=== PATIENT | female | born 1930 | race Caucasian/White ===

== ENCOUNTER 2017-03-06 05:50 | Observation (INO) | payer MEDICARE ==
[2017-03-05 12:09] LABS: BASOPHILS 0.2 %; BASOPHILS ABSOLUTE 0.02 10/3/uL (0.0-0.16); EOSINOPHILS 0.6 %; EOSINOPHILS ABSOLUTE 0.07 10/3/uL (0.0-0.53); IMMATURE GRANULOCYTES 0.3 %; IMMATURE GRANULOCYTES ABSOLUTE 0.04 10/3/uL (0.0-0.11); LYMPHOCYTES 6.8 %; LYMPHOCYTES ABSOLUTE 0.82 10/3/uL (0.67-4.30); MEAN CORPUS HGB CONC 31.7 g/dL (32.0-36.0); MEAN CORPUSCULAR HEMOGLOB 25.4 pg (26.0-34.0); MEAN PLATELET VOLUME 9.6 fL (9.2-13.0); MONOCYTES 7.9 %; MONOCYTES ABSOLUTE 0.95 10/3/uL (0.21-1.20); NEUTROPHILS 84.2 %; PLATELET COUNT 229 10/3/uL (150-400); RED CELL COUNT 3.93 10/6/uL (4.0-5.6)
[2017-03-05 12:11] LABS: HEMATOCRIT 31.5 % (36.0-48.0); MANUAL DIFF NO %; MEAN CORPUSCULAR VOLUME 80.2 fL (80-100); RBC DISTRIBUTION WIDTH 16.2 % (12.0-16.0); WHITE BLOOD CELLS 12.1 10/3/uL (4.5-10.5)
[2017-03-05 12:19] LABS: A/G RATIO 0.8 (0.7-1.9); ALBUMIN 3.2 G/DL (3.5-5.0); ALKALINE PHOSPHATASE 75 U/L (45-117); BUN (BLOOD UREA NITROGEN) 40 MG/DL (6-23); CHLORIDE, SERUM 101 MMOL/L (96-112); CO2 (CARBON DIOXIDE) 28 MMOL/L (24-34); CREATININE 2.15 MG/DL (0.55-1.02); GFR AFRICAN AMERICAN 24 ML/MIN (>=60); GFR NON AFRICAN AMERICAN 20 ML/MIN (>=60); GLUCOSE, SERUM 104 MG/DL (60-99); POTASSIUM, SERUM 4.2 MMOL/L (3.5-5.3); SGOT(AST) 14 U/L (5-40); SGPT(ALT) 19 U/L (5-65); SODIUM, SERUM 134 MMOL/L (135-148); TOTAL BILIRUBIN 0.4 MG/DL (0-1.2); TOTAL PROTEIN 7.2 G/DL (6.0-8.5)
[2017-03-05 12:36] LABS: ASCORBIC ACID (UR NOT ORDER) NEG (NEG); BILIRUBIN, URINE NEGATIVE (NEG); KETONE, URINE NEGATIVE (NEG); LEUKOCYTE ESTERASE(NOT OR LARGE (NEG); WBC (NOT ORDERED) (RFLEX) 75 (0-5)
[~2017-03-06] VITALS: Ht 162.6 cm; Wt 66.2 kg
--- NOTE | ~2017-03-06 | OP ---
Record Of Operation [facility] [address] [place]. 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 POSTOPERATIVE DIAGNOSIS: Left distal ureteral stricture (probably malignant) with left ureteral mass and proximal hydronephrosis. OPERATIVE PROCEDURES: 1. Left ureteroscopy with ureteral biopsy x3. 2. Left ureteral stent placement (6-Eritrean 26 cm Microvasive Percuflex stent without removal suture). 3. Left retrograde pyelogram. ANESTHESIA: General inhalation. SPECIMENS: 1. Left ureteral biopsy x3. 2. Cath bladder urine for culture and sensitivity. 3. Cath urine left renal pelvis, culture and sensitivity. COMPLICATIONS: None. ESTIMATED BLOOD LOSS: Less than 2 mL. IMMEDIATE POSTOP: Satisfactory. DESCRIPTION OF PROCEDURE: The patient was brought into the cysto suite, given inhalational anesthetic by endotracheal tube, placed in the lithotomy position. Perineum and genitalia were prepped and draped in a sterile fashion. Video cystourethroscopy was then performed using a #22 cystoscope and Foroblique lens. On introducing the cystoscope sheath and obturator, the obturator was removed and a cath bladder specimen for culture and sensitivity was obtained. The left ureteral orifice was identified and a left retrograde pyelogram was performed using a #8 cone-tipped ureteral catheter. This revealed filling of a stenotic distal intramural ureter and dilation proximal to that consistent with a ureteral stricture. Following this, a 0.35 Sensor wire was passed into the left ureteral orifice and easily up into the what was felt to be the pyelocalyceal system. A 5-Eritrean open-ended angiographic catheter was passed over the wire and when seen in the left upper quadrant, the wire was removed. Immediately noted to efflux from the distal end of the catheter was a brisk drip of murky, but nonpurulent urine. A sample of this was obtained for culture and sensitivity. Contrast was injected in a retrograde fashion demonstrating filling of a dilated pyelocalyceal system. The 0.35 Sensor wire was then passed through the left ureteral catheter which was removed leaving the wire in place. A UroMax 4 cm ureteral dilating balloon was passed over the wire and into the intramural ureter. The orifice and intramural ureter were then dilated using a "Escobar-type" pressure syringe. Strict adherence to Record Of Operation [address] [place]. [address] NAME: MADINA DE LEON : 34 STATUS : ADM Herson PAT#: [id number] AGE: 86 ADM/REG DATE : 03/06/17 MR#: [id number] REPORT SERV DATE: 03/06/17 DICTATED BY: JIM NUNN DATE: 03/06/17 REPORT STATUS : Draft TRANSCRIBED BY: BENNY DATE: 03/06/17 balloon manufacture's pressure recommendations for balloon inflation were adhered to. Balloon was deflated and removed leaving the wire in place. The cystoscope was removed leaving the wire in place. A short rigid ureteroscope was then passed under video monitoring into the left distal ureter where the area of stricturing was identified. Multiple biopsies using a Piranha biopsy forceps were obtained. The scope could be advanced proximal to the area of stricturing, and the ureter appeared normal at this level. The ureteroscope was removed. The cystoscope was then introduced over the wire and a 6-Eritrean 26 cm Microvasive Percuflex stent was passed over the wire and pushed up into the pyelocalyceal system. The wire was removed. The stent assumed normal configuration both proximally and distally. At this point, #18 Mora catheter was placed, the bladder balloon inflated, hooked to drainage, and the patient was awakened and sent to recovery in satisfactory condition. /BENNY Jim Nunn M.D. / [id number] CC: Cristine Cooley M.D.
[~2017-03-06 05:50] MED LIST: CELEBREX2 PO; DYAZIDE PO; MAX25 PO; NAP500 PO; NORV10 PO; P5 PO; PRAVACHOL40 MG PO; PRESERVISION; PRESERVISION A1 EACH PO; PROTONIX PO; SYN075 PO; WELLXL150 PO; ZOCOR40 PO
[2017-03-07 04:21] LABS: BASOPHILS 0.3 %; BASOPHILS ABSOLUTE 0.02 10/3/uL (0.0-0.16); EOSINOPHILS 0.1 %; EOSINOPHILS ABSOLUTE 0.01 10/3/uL (0.0-0.53); HEMOGLOBIN 8.8 g/dL (12.0-16.0); IMMATURE GRANULOCYTES 0.3 %; IMMATURE GRANULOCYTES ABSOLUTE 0.02 10/3/uL (0.0-0.11); LYMPHOCYTES 14.8 %; MEAN CORPUS HGB CONC 32.5 g/dL (32.0-36.0); MEAN CORPUSCULAR VOLUME 79.9 fL (80-100); MONOCYTES 7.4 %; MONOCYTES ABSOLUTE 0.55 10/3/uL (0.21-1.20); NEUTROPHILS 77.1 %; NEUTROPHILS ABSOLUTE 5.72 10/3/uL (2.02-8.40); PLATELET COUNT 190 10/3/uL (150-400); RED CELL COUNT 3.39 10/6/uL (4.0-5.6); WHITE BLOOD CELLS 7.4 10/3/uL (4.5-10.5)
[2017-03-07 04:26] LABS: HEMATOCRIT 27.1 % (36.0-48.0); MANUAL DIFF NO %
[2017-03-07 04:33] LABS: CALCIUM, SERUM 8.1 MG/DL (8.5-10.4); CHLORIDE, SERUM 107 MMOL/L (96-112); CREATININE 1.82 MG/DL (0.55-1.02); GFR AFRICAN AMERICAN 29 ML/MIN (>=60); GFR NON AFRICAN AMERICAN 25 ML/MIN (>=60); POTASSIUM, SERUM 3.7 MMOL/L (3.5-5.3); SODIUM, SERUM 139 MMOL/L (135-148)
[2017-03-07 04:35] LABS: BUN (BLOOD UREA NITROGEN) 33 MG/DL (6-23); CO2 (CARBON DIOXIDE) 23 MMOL/L (24-34); GLUCOSE, SERUM 139 MG/DL (60-99)
[2017-03-07] MEDS ORDERED: LEVAQUIN5T PO (15:00)
[2017-03-07] MEDS ORDERED: NORCO1 TA1 PO (15:00)
[2017-03-07] MEDS ORDERED: ZOFRAN ODT4 MG PO (15:00)
== END 2017-03-07 15:27 | disposition home or self-care (01) ==
LOC: ENRESERV → ENRESERVDT → ENRESERVTM → SDC 05:50 → 4SO 12:19
PROVIDERS: Urology
PROC: 0T778DZ Dilation of Left Ureter with Intraluminal Device, Via Natural or Artificial Opening Endoscopic (ICD-10-PCS; 2017-03-06)
PROC: BT1FYZZ Fluoroscopy of Left Kidney, Ureter and Bladder using Other Contrast (ICD-10-PCS; 2017-03-06)
PROC: 0TB78ZX Excision of Left Ureter, Via Natural or Artificial Opening Endoscopic, Diagnostic (ICD-10-PCS; principal; 2017-03-06 07:15)
DX: N13.1 Hydronephrosis with ureteral stricture, not elsewhere classified (principal); I10 Essential (primary) hypertension; E03.9 Hypothyroidism, unspecified; Z98.1 Arthrodesis status; Z90.710 Acquired absence of both cervix and uterus; Z96.653 Presence of artificial knee joint, bilateral; Z90.49 Acquired absence of other specified parts of digestive tract; Z98.890 Other specified postprocedural states; Z79.899 Other long term (current) drug therapy
CPT/HCPCS: 71020; 74420; 80048; 80053; 81001; 85025; 87015; 87070; 87075; 87077; 87086; 87102; 87116; 87186; 87205; 88305; 93005; 96374; 96375; A9270-GY; C1726; C2617; G0378; J0330; J1956; J2405; J3010; Q9967